=== PATIENT | male | born 1950 | race Two or more races ===

== ENCOUNTER 2021-05-02 10:12 | Emergency (ER) | payer SELFPAY ==
[~2021-05-02] VITALS: Ht 175.3 cm; Wt 125.0 kg
--- NOTE | 2021-05-02 11:13 | PHYS DOC ---
Past Medical History Past Medical History: Hypertension, Other Additional Past Medical Histor: enlarged prostate Past Surgical History: No Surgical History Smoking Status: Never Smoker Alcohol Use: None General Adult EDM: Chief Complaint: URINARY RETENTION HPI: HPI: Patient is a 71 year old male who presents with inability to fully evacuate his bladder for the past 3 days. He has a history of urinary retention and presumably a large prostate. A little over week ago, he was visiting family in [place], presented there to an ER, had urinary catheter placed. It is subsequent been removed at his primary care physician's office. He has not previously required a urinary catheter prior to this. He does not have a urologist. He has not been referred to urology. He denies abdominal pain, nausea, vomiting, constipation, diarrhea. Denies fevers or chills. He is reportedly taking saw palmetto for his prostate. He reports that he is eating and drinking well. He has no chest pain dyspnea, dizziness complaints. Review of Systems: Review of Systems: Constitutional: Denies fever or chills. [] Respiratory: Denies cough or shortness of breath. [] Cardiovascular: Denies chest pain or edema. [] GI: Denies abdominal pain, nausea, vomiting, or bowel habit changes. : Urinary retention. Denies dysuria or gross hematuria. Reports urinary urgency. Musculoskeletal: Denies back pain or joint pain. [] Integument: Denies rash. [] Neurologic: Denies headache, focal weakness or sensory changes. [] Psychiatric: Denies depression or anxiety. [] Heart Score: C/O Chest Pain: No Risk Factors: Risk Factors: DM, Current or recent (<one month) smoker, HTN, HLP, family history of CAD, obesity. Risk Scores: Score 0 - 3: 2.5% MACE over next 6 weeks - Discharge Home Score 4 - 6: 20.3% MACE over next 6 weeks - Admit for Clinical Observation Score 7 - 10: 72.7% MACE over next 6 weeks - Early Invasive Strategies Allergies: Allergies: Allergies Coded Allergies Type Severity Reaction Last Updated Verified No Known Drug Allergies 05/02/21 No Physical Exam: PE: Constitutional: Well developed, well nourished, no acute distress, non-toxic appearance. [] HENT: Normocephalic, atraumatic Eyes: Sclera are clear, anicteric. Neck: Normal range of motion, no tenderness, supple, no stridor. [] Cardiovascular:Heart rate regular rhythm, was 2 radial and +2 dorsalis pedis pulses bilaterally Lungs & Thorax: Bilateral breath sounds clear to auscultation [] Abdomen: Diminished obese, soft, nondistended, no fluid wave, bladder is slightly distended, no tenderness to palpation. Normal bowel sounds. No palpable masses organomegaly noted. No palpable pulsatile mass. Skin: Warm, dry, no erythema, no rash. [] Back: No tenderness, no CVA tenderness. [] Extremities: No tenderness, no cyanosis, no clubbing, ROM intact, no edema. No calf tenderness. Neurologic: Alert and oriented X 3, normal motor function, normal sensory function, no focal deficits noted. [] Psychologic: Affect normal, judgement normal, mood normal. [] Current Patient Data: Vital Signs: Vital Signs Date Time Temp Pulse Resp B/P (MAP) Pulse Ox O2 Delivery O2 Flow Rate FiO2 05/02/21 10:25 98.6 90 18 118/82 (94) 97 Room Air 98.6 EKG: EKG: [] Radiology/Procedures: Radiology/Procedures: [] Course & Med Decision Making: Course & Med Decision Making Pertinent Labs and Imaging studies reviewed. (See chart for details) The patient had a Agosto catheter placed without difficulty. He is drained a significant amount of urine. P.o. Keflex is given as a first dose, for treatment of urinary tract infection. Urine culture is ordered and is pending. I have explained all of the findings, differential diagnosis and plan of care with the patient as well as with family member. I explained that urine culture is pending, he should be notified of any need to change antibiotics based on these results. I told him he needs to follow-up with urology services. He is given information for [facility]. He is also informed that he has some mild renal insufficiency. I explained that he needs to discuss this further with his primary care physician. I have no previous records here to compare. He reports that over 2 years ago, he believes that his primary care physician said something about possible kidney issues, though he never followed up on it, and he is unaware of any specific details. I told him to bring this up at his doctor's office this week, I recommend he call tomorrow to arrange for close outpatient follow-up. He will need to be discharged with a Agosto catheter, may trial voiding as an outpatient, either with his PCP or with urology services. He feels well, is well-appearing, resting comfortably, no evidence of distress. No evidence of systemic infection or sepsis. No indication for emergent imaging or further invasive exams at this time. Strict return precautions are given. He verbalized understanding. Lenny Disclaimer: Lenny Disclaimer: This electronic medical record was generated, in whole or in part, using a voice recognition dictation system. Departure Departure Impression: Primary Impression: Urinary retention Additional Impressions: Urinary tract infection Qualified Codes: T83.511A - Infection and inflammatory reaction due to indwelling urethral catheter, initial encounter; N39.0 - Urinary tract infection, site not specified Mild renal insufficiency Disposition: HOME / SELF CARE / HOMELESS Condition: STABLE Patient Instructions: Urinary Retention, Acute, Male, Urinary Tract Infection Additional Instructions: You are likely retaining urine secondary to an enlarged prostate. You do have evidence of a urinary tract infection, please take the antibiotics as prescribed. Your urine culture is pending, and if there is any need to change your antibiotics based on this culture result, you should be notified within the next 48 hours. Your renal/kidney function is slightly abnormal, your creatinine number is 1.5. Please discuss this with your primary care physician, I recommend you contact them this week to be seen in the office sometime within the next 7 to 10 days. Please discuss what your previous kidney function nu mbers were when you had lab work done there previously. You will also need to see a urologist. We do not have urology services here at [facility]. I recommend you contact [facility]. They have multiple offices across the [facility]. Your primary care doctor should help you in coordinating this as well. Return to the ER for severe abdominal pain, vomiting, dehydration, temperature 100.4 or higher, or for any other concerns. [facility] [address] [place] [address] Scripts Cephalexin (KEFLEX) 500 Mg Capsule 1 CAP PO BID for 7 Days, #14 CAP Prov: CHARLI MAN DO 05/02/21 CHARLI MAN DO May 02, 2021 11:13
[2021-05-02 11:51] LABS: BILIRUBIN,URINE NEGATIVE (NEG); CLARITY,URINE CLEAR; COLOR,URINE YELLOW; NITRITE,URINE POSITIVE (NEG); PH,URINE 5.5 (<5.0-8.0); PROTEIN,URINE 30 mg/dL (NEG-TRACE)
[2021-05-02 12:01] LABS: BACTERIA,URINE MANY /HPF (0-FEW); WBC,URINE >40 /HPF (0-4)
[2021-05-02 12:05] LABS: CALCIUM 8.5 mg/dL (8.5-10.1); CREATININE 1.5 mg/dL (0.7-1.3); GFR 46.1; POTASSIUM 3.4 mmol/L (3.5-5.1)
[2021-05-02 12:12] LABS: BASO % 0 % (0-3); EOS % 0 % (0-3); HEMATOCRIT 46.9 % (39.0-53.0); HEMOGLOBIN 15.8 g/dL (13.0-17.5); LYMPH # 0.6 x10^3/uL (1.0-4.8); LYMPH % 5 % (24-48); MEAN CORPUSCULAR HEMOGLOBIN 29 pg (25-35); MEAN CORPUSCULAR HGB CONC 34 g/dL (31-37); MEAN CORPUSCULAR VOLUME 87 fL (79-100); MONO # 0.8 x10^3/uL (0.0-1.1); MONO % 6 % (0-9); NEUT # 11.3 x10^3/uL (1.8-7.7); NEUT % 89 % (31-73); PLATELET COUNT 93 x10^3/uL (140-400); RED BLOOD COUNT 5.39 x10^6/uL (4.30-5.70); RED CELL DISTRIBUTION WIDTH 14.6 % (11.5-14.5); WHITE BLOOD COUNT 12.7 x10^3/uL (4.0-11.0)
[2021-05-02] MEDS ORDERED: CEPHALEXIN 250 MG CAPSULE. PO ONE (12:15)
[2021-05-02 13:05] VITALS: BP 121/75
[2021-05-02] MEDS ORDERED: CEPH500C PO (13:10)
[2021-05-02 13:21] LABS: PLT ESTIMATE DECREASED (ADEQUATE)
== END 2021-05-02 13:28 | disposition home or self-care (01) ==
LOC: ER 10:12
DX: T83.511A Infection and inflammatory reaction due to indwelling urethral catheter, initial encounter (principal); N39.0 Urinary tract infection, site not specified; N28.9 Disorder of kidney and ureter, unspecified; I10 Essential (primary) hypertension; Y84.6 Urinary catheterization as the cause of abnormal reaction of the patient, or of later complication, without mention of misadventure at the time of the procedure
CPT/HCPCS: 36415; 51702; 80048; 81001; 85025; 87077; 87086; 87186; 99284; A4314